=== PATIENT | female | born 1950 | race Caucasian/White ===

== ENCOUNTER 2018-08-10 07:15 | Emergency (ER) | payer MEDICARE, BC ==
[2018-08-10] MEDS ORDERED: Benzonatate CAP* 100 MG PO ONE (07:34)
[2018-08-10] MEDS ORDERED: guaiFENesin/CODIEN 100MG-10MG* 5 ML UDC PO ONE (07:34)
--- NOTE | 2018-08-10 08:58 | ED ---
Respiratory - HPI Summary HPI Summary: Patient is a 68-year-old female presenting to the ED with a one-week history of cough and losing her voice. She denies any COPD or asthma diagnoses. She does have a history of sleep apnea and wears her CPAP every night, however has not and wearing CPAP machine over the past week due to her persistent cough. She states the cough has been worsening, is nonproductive. Denies any chest pain or shortness of breath. Denies any abdominal pain, nasal congestion or rhinorrhea, headache or visual changes. She denies any fevers, sweats, chills. Denies any known sick contacts. She denies any body aches. She has not taken anything [id number] for her cough. She states this happened to her once before several years ago and she normally does not get sick easily - History of Current Complaint Chief Complaint: EDGeneral Stated Complaint: COUGH Time Seen by Provider: 08/10/18 07:26 Hx Obtained From: Patient Onset/Duration: Sudden Onset Timing: Constant Initial Severity: Moderate Current Severity: Moderate Pain Intensity: 0 Character: Cough (Nonproductive) Sputum Amount: Small Sputum Color: Clear Aggravating Factor(s): URI Alleviating Factor(s): Nothing Associated Signs and Symptoms: Negative - Risk Factors Status Asthmaticus Risk Factors: Negative Pulmonary Embolism Risk Factors: Negative Tuberculosis Risk Factors: Negative - Allergy/Home Medications Allergies/Adverse Reactions: Allergies Allergy/AdvReac Type Severity Reaction Status Date / Time MS Penicillins [PCN] Allergy Intermediate Rash Verified 08/10/18 07:21 PMH/Surg Hx/FS Hx/Imm Hx Previously Healthy: Yes Musculoskeletal History: Reports: Hx Osteoporosis Denies: Hx Rheumatoid Arthritis - Cancer History Hx Chemotherapy: No Hx Radiation Therapy: No - Surgical History Surgery Procedure, Year, and Place: RIGHT MAMMARY DUCT; APPENDECTOMY; RT OOPHERECTOMY - Immunization History Hx Pertussis Vaccination: No Immunizations Up to Date: Yes Infectious Disease History: No Infectious Disease History: Denies: Traveled Outside the [place] in Last 30 Days - Social History Occupation: Unemployed Lives: Alone Alcohol Use: None Hx Substance Use: No Substance Use Type: Reports: None Hx Tobacco Use: No Smoking Status (MU): Never Smoked Tobacco Review of Systems Negative: Fever, Chills, Fatigue, Skin Diaphoresis Negative: Epistaxis, Dental Pain, Sore Throat Negative: Palpitations, Chest Pain Positive: Cough. Negative: Shortness Of Breath Genitourinary: Negative Positive: no symptoms reported, see HPI Negative: Arthralgia, Myalgia Skin: Negative Neurological: Negative All Other Systems Reviewed And Are Negative: Yes Physical Exam Triage Information Reviewed: Yes Vital Signs On Initial Exam: Initial Vitals Temp Pulse Resp BP Pulse Ox 98.4 F 117 18 158/81 97 08/10/18 07:16 08/10/18 07:16 08/10/18 07:16 08/10/18 07:16 08/10/18 07:16 Vital Signs Reviewed: Yes Appearance: Positive: Well-Appearing, Well-Nourished Skin: Positive: Skin Color Reflects Adequate Perfusion Head/Face: Positive: Normal Head/Face Inspection Eyes: Positive: EOMI, DONNA, Conjunctiva Clear Neck: Positive: Supple Respiratory/Lung Sounds: Positive: Clear to Auscultation, Breath Sounds Present Musculoskeletal: Positive: Normal, Strength/ROM Intact Neurological: Positive: Speech Normal Psychiatric: Positive: Affect/Mood Appropriate Diagnostics - Vital Signs Vital Signs Temp Pulse Resp BP Pulse Ox 08/10/18 07:16 98.4 F 117 18 158/81 97 - Laboratory Lab Statement: Any lab studies that have been ordered have been reviewed, and results considered in the medical decision making process. Disposition - Course Course Of Treatment: During the course of treatment, the patient is evaluated for cough. On physical examination, patient appears well and nontoxic. Vital signs are stable and she is afebrile. She has a dry cough on exam and evidence of laryngitis. She denies any odynophagia or dysphagia. Lungs CTA. RRR. Chest x-ray obtained which shows a RUL PNA. She is prescribed azithromax, robittusin with codeine and tessalon. She will follow up with PCP in 3-5 days for a repeat xray. - Diagnoses Provider Diagnoses: Pneumonia Discharge - Sign-Out/Discharge Documenting (check all that apply): Patient Departure - Discharge Plan Condition: Stable Disposition: HOME Prescriptions: Azithromycin TAB* [Zithromax TAB (Z-KATY) 250 mg #6 tabs] 2 tab PO .TODAY, THEN 1 DAILY #1 katy Benzonatate CAP* [Tessalon CAP*] 100 mg PO TID #21 cap guaiFENesin/CODIEN 100MG-10MG* [Robitussin AC 100Mg-10Mg*] 10 ml PO Q6H PRN # 120 udc MDD 40 PRN Reason: Cough Patient Education Materials: Bacterial Pneumonia (ED) Referrals: Byron Wilkinson MD [Primary Care Provider] - Additional Instructions: Tessalon up to 3 times daily Robitussin with codeine up to 4 times daily Do not take additional [id number] Robitussin Azithromycin, 2 tabs today and then one tab for the next 4 days Please follow-up with your PCP for a repeat chest x-ray in 3-5 days - Billing Disposition and Condition Condition: STABLE Disposition: Home
--- NOTE | 2018-08-10 09:03 | RAD ---
Indication: Cough. 2 views the chest including dual energy PA views are reviewed and compared to previous exam dated August 19, 2005. There is right upper lobe pneumonia noted. Left lung field is clear. No mediastinal shift is noted. Heart is of normal size and configuration. IMPRESSION: Right upper lobe pneumonia is identified.
[2018-08-10 09:33] VITALS: BP 124/94
== END 2018-08-10 09:31 | disposition home or self-care (01) ==
LOC: ED 07:15
DX: J18.9 Pneumonia, unspecified organism (principal); Z88.0 Allergy status to penicillin
CPT/HCPCS: 71046; 99282; A9270-GY

== ENCOUNTER 2020-09-03 22:39 | Inpatient (IN) ==
[2020-09-03] MEDS ORDERED: NS 0.9% 1000 ml BAG 1,000 ML IV ONE (23:13)
[2020-09-04 00:36] LABS: ABS Basophils 0.1 10^3/ul (0-0.2); ABS Eosinophils 0.2 10^3/ul (0-0.6); ABS Lymphocytes 1.4 10^3/ul (1.0-4.8); ABS Monocytes 0.7 10^3/ul (0-0.8); ABS Neutrophils 8.8 10^3/ul (1.5-7.7); Eosinophil % 1.7 %; Hematocrit 40 % (35-47); Hemoglobin 14.1 g/dL (12.0-16.0); Lymphocyte % 12.9 %; Mean Corpuscular HGB Conc 36 g/dL (31-36); Mean Corpuscular Hemoglobin 31 pg (27-31); Mean Corpuscular Volume 87 fL (80-97); Mean Platelet Volume 9.9 fL (7.4-10.4); Platelet Count 308 10^3/uL (150-450); Red Blood Count 4.54 10^6 /uL (3.70-4.87); Red Cell Distribution Width 14 % (10-15); White Blood Count 11.3 10^3/uL (3.5-10.8)
[2020-09-04 00:42] LABS: Urine Appearance Cloudy; Urine Bilirubin Negative (Negative); Urine Blood 2+ (Negative); Urine Color Yellow; Urine Glucose Negative (Negative); Urine Ketones Negative (Negative); Urine Nitrite Negative (Negative); Urine Protein Negative (Negative); Urine Specific Gravity 1.005 (1.010-1.030); Urine Urobilinogen Negative (Negative)
[2020-09-04 00:46] LABS: Albumin 3.6 g/dL (3.2-5.2); BUN/Creatinine Ratio 13.5 (8-20); C Reactive Protein 224.37 mg/L (<8.01); Calcium 7.7 mg/dL (8.6-10.3); EGFR African American 93.3 (>60); EGFR Non-African American 77.1 (>60); Globulin 3.7 g/dL (2-4); Magnesium 1.8 mg/dL (1.9-2.7); Total Bilirubin 0.7 mg/dL (0.2-1.0); Total Protein 7.3 g/dL (6.4-8.9); Urine Bacteria 1+ (Absent); Urine Red Blood Cell Trace(0-2/hpf) (Absent); Urine Squamous Epithelial Cell Present (Absent); Urine White Blood Cell 1+(6-10/hpf) (Absent)
[2020-09-04 00:56] LABS: Potassium 1.8 mmol/L (3.5-5.0)
[2020-09-04] MEDS ORDERED: KCL 20 MEQ/100 ML IVPREMIX 20 MEQ/100 ML BAG IV ONE (00:57)
[2020-09-04] MEDS ORDERED: Potassium Chloride LIQUID 20 MEQ/15 ML LIQUID PO ONE (00:58)
[2020-09-04] MEDS ORDERED: Ondansetron 4 mg VIAL 2 MG/ML 2 ml VIAL IV PRN (03:58)
[2020-09-04] MEDS ORDERED: NS 0.9% w/ 40 Meq KCL 1000 ML 1,000 ML IV SCH (04:00)
[2020-09-04] MEDS ORDERED: Magnesium Sulfate 2 gm BAG 2 GM/50 ML BAG IVPB ONE (04:01)
[2020-09-04] MEDS: KCL 20 MEQ/100 ML IVPREMIX 20 MEQ/100 ML BAG IV SCH ×5 (04:49→22:28)
[2020-09-04] MEDS: Potassium Chlor 20 meq TAB.ER PO SCH ×3 (04:56→12:57)
[2020-09-04 07:17] LABS: Calcium 7.5 mg/dL (8.6-10.3)
[2020-09-04 07:19] LABS: Potassium 2.4 mmol/L (3.5-5.0)
[2020-09-04 07:22] LABS: BUN/Creatinine Ratio 11.1 (8-20); EGFR African American 112.4 (>60); EGFR Non-African American 92.9 (>60)
[2020-09-04] MEDS: Enoxaparin 40 MG/0.4 ML SYR SUBCUT SCH (07:46)
[2020-09-04 09:48] LABS: Magnesium 2.7 mg/dL (1.9-2.7)
[2020-09-04 09:54] LABS: Potassium 2.7 mmol/L (3.5-5.0)
[2020-09-04 15:47] LABS: BUN/Creatinine Ratio 11.7 (8-20); Calcium 7.5 mg/dL (8.6-10.3); EGFR African American 118.9 (>60); EGFR Non-African American 98.3 (>60)
[2020-09-04 15:49] LABS: Potassium 2.5 mmol/L (3.5-5.0)
[2020-09-04 21:08] LABS: BUN/Creatinine Ratio 11.1 (8-20); Calcium 7.6 mg/dL (8.6-10.3); EGFR African American 112.4 (>60); EGFR Non-African American 92.9 (>60); Potassium 2.8 mmol/L (3.5-5.0)
[2020-09-05 06:07] LABS: ABS Eosinophils 0.4 10^3/ul (0-0.6); ABS Lymphocytes 1.5 10^3/ul (1.0-4.8); ABS Monocytes 0.6 10^3/ul (0-0.8); ABS Neutrophils 6.9 10^3/ul (1.5-7.7); Hematocrit 37 % (35-47); Hemoglobin 12.7 g/dL (12.0-16.0); Lymphocyte % 16.3 %; Mean Corpuscular HGB Conc 34 g/dL (31-36); Mean Corpuscular Hemoglobin 31 pg (27-31); Mean Corpuscular Volume 90 fL (80-97); Mean Platelet Volume 10.2 fL (7.4-10.4); Nucleated Red Blood Cells % 0.1; Platelet Count 214 10^3/uL (150-450); Red Blood Count 4.15 10^6 /uL (3.70-4.87); Red Cell Distribution Width 14 % (10-15); White Blood Count 9.5 10^3/uL (3.5-10.8)
[2020-09-05 06:20] LABS: BUN/Creatinine Ratio 10.3 (8-20); Blood Urea Nitrogen 6 mg/dL (6-24); C Reactive Protein 200.39 mg/L (<8.01); CO2 Carbon Dioxide 24 mmol/L (22-32); Calcium 7.7 mg/dL (8.6-10.3); Chloride 103 mmol/L (101-111); EGFR African American 123.6 (>60); EGFR Non-African American 102.2 (>60); Glucose 91 mg/dL (70-100); Magnesium 2.1 mg/dL (1.9-2.7); Sodium 135 mmol/L (135-145)
[2020-09-05 07:12] LABS: Anion Gap 8 mmol/L (2-11)
[2020-09-05] MEDS: Enoxaparin 40 MG/0.4 ML SYR SUBCUT SCH (08:23)
[2020-09-05 08:59] LABS: BUN/Creatinine Ratio 7.8 (8-20); Calcium 7.9 mg/dL (8.6-10.3); EGFR African American 110.4 (>60); EGFR Non-African American 91.2 (>60)
[2020-09-05 09:04] LABS: Potassium 2.5 mmol/L (3.5-5.0)
[2020-09-05] MEDS ORDERED: Potassium Chlor 20 meq TAB.ER PO ONE ×2 (09:23→19:42)
[2020-09-05] MEDS: KCL 20 MEQ/100 ML IVPREMIX 20 MEQ/100 ML BAG IV SCH ×3 (10:34→15:21)
[2020-09-05] MEDS ORDERED: Iohexol 300 (CONTRAST) 10 ML SDV IV ONE (16:57)
[2020-09-05 18:20] LABS: BUN/Creatinine Ratio 8.7 (8-20); EGFR African American 101.2 (>60); EGFR Non-African American 83.6 (>60); Potassium 3.2 mmol/L (3.5-5.0)
[2020-09-05] MEDS: NS 0.9% 1000 ml BAG 1,000 ML IV SCH (19:29)
[2020-09-06] MEDS: NS 0.9% 1000 ml BAG 1,000 ML IV SCH (05:12)
[2020-09-06] MEDS ORDERED: Potassium Chlor 20 meq TAB.ER PO ONE (07:59)
[2020-09-06] MEDS: Enoxaparin 40 MG/0.4 ML SYR SUBCUT SCH (08:12)
[2020-09-06 08:47] LABS: ABS Basophils 0.1 10^3/ul (0-0.2); ABS Eosinophils 0.4 10^3/ul (0-0.6); ABS Lymphocytes 1.6 10^3/ul (1.0-4.8); ABS Monocytes 0.7 10^3/ul (0-0.8); ABS Neutrophils 6.3 10^3/ul (1.5-7.7); Eosinophil % 4.9 %; Hematocrit 38 % (35-47); Lymphocyte % 18.1 %; Mean Corpuscular HGB Conc 34 g/dL (31-36); Mean Corpuscular Hemoglobin 30 pg (27-31); Mean Corpuscular Volume 88 fL (80-97); Mean Platelet Volume 9.1 fL (7.4-10.4); Platelet Count 279 10^3/uL (150-450); Red Blood Count 4.28 10^6 /uL (3.70-4.87); Red Cell Distribution Width 14 % (10-15); White Blood Count 9.1 10^3/uL (3.5-10.8)
[2020-09-06 09:03] LABS: BUN/Creatinine Ratio 8.6 (8-20); Calcium 8.2 mg/dL (8.6-10.3); EGFR African American 123.6 (>60); EGFR Non-African American 102.2 (>60); Magnesium 1.8 mg/dL (1.9-2.7)
[2020-09-06 09:14] LABS: Potassium 2.7 mmol/L (3.5-5.0)
[2020-09-06] MEDS: KCL 20 MEQ/100 ML IVPREMIX 20 MEQ/100 ML BAG IV SCH ×2 (10:57→13:36)
[2020-09-06 15:40] VITALS: BP 141/74
== END 2020-09-06 17:10 | disposition home health service (06) | DRG 373 ==
LOC: ED 22:39 → MED 09-04 03:54
PROVIDERS: ADMIT Internal Medicine; ATTEND Pediatrics